=== PATIENT | male | born 1990 | race Caucasian/White ===

== ENCOUNTER 2019-10-06 11:33 | Emergency (ER) | payer MEDICAID, OTHER ==
--- NOTE | 2019-10-06 11:43 | ED Physician Documentation ---
General Adult - HISTORIAN Historian: patient - HPI Stated Complaint: scrotom redness and swelling since Sunday Chief Complaint: General Adult Further Comments: yes (HE states he was at a hotel over the weekend and he has had some redness in his scotom. He has mild itching. No real pain. No discharge. No pain with sex or errection. No pain with voiding. No buring or urgency with urination) - ROS CONST: other (skin concerns ) MS/SKIN/LYMPH: rash - PAST HX Past History: none Immunizations: UTD Allergies/Adverse Reactions: Allergies Allergy/AdvReac Type Severity Reaction Status Date / Time No Known Allergies Allergy Verified 10/06/19 11:48 Home Medications: Ambulatory Orders Medication Instructions Recorded NK 10/06/19 - SOCIAL HX Smoking History: cigarettes Alcohol Use: none Drug Use: none - FAMILY HX Family History: No - REVIEWED ASSESSMENTS Nursing Assessment Reviewed: Yes Vitals Reviewed: Yes General Adult Physical Exam - PHYSICAL EXAM GENERAL APPEARANCE: no distress EENT: eye inspection normal, no signs of dehydration NECK: normal inspection RESPIRATORY: no resp distress, chest non-tender, breath sounds normal CVS: reg rate & rhythm, heart sounds normal ABDOMEN: soft BACK: normal inspection, no CVA tenderness SKIN: warm/dry, other (scrotum red and swollen. No drainage from penis. No pain with palpation ) EXTREMITIES: non-tender, no edema NEURO: oriented X3 Discharge Clincal Impression: Scrotal anomaly Referrals: Primary Doctor,No [Primary Care Provider] - 2 Days Comments: 1. Continue OTC meds for symptom control 2. Bactrim DS take 1 by mouth twice daily x 7 days 3. Keep area cool 4. Return to PCP in 2-4 days as needed for any increased symptoms 5. Return to ER for any increased concerns Condition: Stable Disposition: 01 HOME, SELF-CARE Decision to Admit: NO Date of Decison to Admit: 10/06/19 Decision Time: 12:11
[2019-10-06 11:53] VITALS: BP 116/78
== END 2019-10-06 12:10 | disposition home or self-care (01) ==
LOC: ED 11:33
DX: Q55.20 Unspecified congenital malformations of testis and scrotum (principal)
CPT/HCPCS: 99282; 99284